=== PATIENT | male | born 1970 | race Caucasian/White ===

== ENCOUNTER 2020-08-01 08:51 | Outpatient (CLI) | payer MEDICARE, SELFPAY ==
--- NOTE | 2020-08-03 13:07 | WPDNEUROLOGY ---
Neurology EEG Report General Information Date of Study: 08/01/20 TEST eeg DIAGNOSIS Seizure-like activity CONDITION OF RECORDING awake drowsy and sleep EEG NUMBER [id number] CLINICAL HISTORY patient reported he is having episodes of sleep walking, searching for words when talking a lot body twitches. Everything started around 5 months ago EEG DESCRIPTION basic resting occipital frequency consists of small amount of poorly organized low to medium voltage 8 to 9 hertz per 2nd alpha admixed with large amount of low-voltage 15 to 18 hertz per 2nd beta. Intermittent low to medium voltage 6 to 7 hertz per 2nd theta activity seen during drowsiness. Bilateral symmetrical sleep activity seen during sleep. Throughout the tracing intermittent asymmetry is noted between the right and left hemisphere but with no evidence of any paroxysmal activity. Non paroxysmal questionably focal. Questionably lateralizing. IMPRESSION Questionably abnormal record due to the presence of a symmetrical activity intermittently throughout the tracing without evidence of any paroxysmal discharge. Clinical correlation recommended if the possibility of focal structural lesion is suspected needs to be ruled out
== END 2020-08-01 08:52 | disposition home or self-care (01) ==
PROVIDERS: PCP Family Medicine; Visit Provider Family Medicine
DX: R56.9 Unspecified convulsions (principal); R94.01 Abnormal electroencephalogram [EEG]
CPT/HCPCS: 95816